=== PATIENT | female | born 1960 | race Caucasian/White ===

== ENCOUNTER → 2023-10-21 06:18 | Day surgery (SDC) | payer OTHER, SELFPAY | LOC: GI 06:18 | PROVIDERS: ATTENDING PHYSICIAN Internal Medicine; FAMILY PHYSICIAN Family Medicine | DX: Z12.11 Encounter for screening for malignant neoplasm of colon (principal); K63.5 Polyp of colon; K64.8 Other hemorrhoids; Z80.0 Family history of malignant neoplasm of digestive organs | CPT/HCPCS: 45380; 88305 ==

== ENCOUNTER → 2024-06-20 11:43 | Outpatient (REF) | payer OTHER, SELFPAY | LOC: WDC 11:43 | PROVIDERS: ATTENDING PHYSICIAN Family Medicine | DX: Z12.31 Encounter for screening mammogram for malignant neoplasm of breast (principal) | CPT/HCPCS: 77063; 77067 ==